=== PATIENT | female | born 1970 | race African-American/Black ===

== ENCOUNTER 2022-11-28 13:59 | Outpatient (CLI) | payer OTHER | END 2022-11-28 14:00 | disposition home or self-care (01) | LOC: CSHRAD 13:59 | PROVIDERS: ATTEND Internal Medicine | DX: J45.30 Mild persistent asthma, uncomplicated (principal); J30.1 Allergic rhinitis due to pollen; R06.83 Snoring | CPT/HCPCS: 71046 ==

== ENCOUNTER 2024-11-02 13:51 | Outpatient (CLI) | payer MEDICAID | END 2024-11-02 13:52 | disposition home or self-care (01) | LOC: CSHMAMMO 13:51 | PROVIDERS: ATTEND Physician Assistant | DX: Z12.31 Encounter for screening mammogram for malignant neoplasm of breast (principal); Z80.3 Family history of malignant neoplasm of breast | CPT/HCPCS: 77067 ==